=== PATIENT | male | born 1975 | race Caucasian/White ===

== ENCOUNTER 2016-07-26 03:41 | Emergency (ER) | payer SELFPAY ==
[2016-07-26] MEDS ORDERED: Albuterol-Ipratrop 3 mg / 0.5 (3 ml) UD IH STA ×2 (04:10→04:11)
--- NOTE | 2016-07-26 04:13 | ED PDOC ---
HPI: SOB/CHF/COPD Time Seen by Provider: 07/26/16 03:58 Chief Complaint (Nursing): Shortness Of Breath Chief Complaint (Provider): asthma exacerbation History Per: Patient History/Exam Limitations: no limitations Onset/Duration Of Symptoms: Days (2) Current Symptoms Are (Timing): Still Present Initiating Event: Out Of Medications Additional History Per: Patient Additional Complaint(s): 41 y/o male history of asthma presents for eval of asthma exacerbation x 2 days. Patient notes wheezing, and shortness of breath, and has ran out of his inhaler. Denies fever, cough, chest pain, palpitations, recent travel, leg pain /swelling. Past Medical History Reviewed: Historical Data, Nursing Documentation, Vital Signs Vital Signs: Last Vital Signs Temp 98.7 F 07/26/16 03:58 Pulse 78 07/26/16 03:58 Resp 17 07/26/16 04:36 BP 136/89 07/26/16 03:58 Pulse Ox 100 07/26/16 05:14 - Medical History PMH: Asthma - Family History Family History: States: Unknown Family Hx - Home Medications Home Medications: Ambulatory Orders Medication Instructions Recorded Albuterol [Proventil] 0.09 2 IH Q6 PRN #1 inhaler 03/29/15 Azithromycin [Zithromax Z-Beto] 250 mg PO DAILY #1 tab 03/29/15 Methylprednisolone [Medrol Dosepak] 4 mg PO ASDIR #1 pkg 03/29/15 Albuterol HFA [Ventolin HFA 90 1 - 2 puff IH Q4 PRN #1 inh 07/26/16 mcg/actuation (8 g)] predniSONE [Prednisone] 60 mg PO DAILY #12 tab 07/26/16 - Allergies Allergies/Adverse Reactions: Allergies Allergy/AdvReac Type Severity Reaction Status Date / Time shellfish derived Allergy Mild rash and Verified 07/26/16 03:58 swelling Review of Systems ROS Statement: Except As Marked, All Systems Reviewed And Found Negative Respiratory: Positive for: Shortness of Breath, Wheezing Physical Exam - Reviewed Nursing Documentation Reviewed: Yes Vital Signs Reviewed: Yes - Physical Exam Appears: Positive for: Well, Non-toxic, No Acute Distress Head Exam: Positive for: ATRAUMATIC, NORMAL INSPECTION, NORMOCEPHALIC Skin: Positive for: Normal Color Eye Exam: Positive for: Normal appearance ENT: Positive for: Normal ENT Inspection Cardiovascular/Chest: Positive for: Regular Rate, Rhythm Respiratory: Positive for: Wheezing Gastrointestinal/Abdominal: Positive for: Normal Exam Back: Positive for: Normal Inspection Extremity: Positive for: Normal ROM Neurologic/Psych: Positive for: Alert, Oriented - ECG O2 Sat by Pulse Oximetry: 100 - Progress ED Course And Treament: duonebs, prednisone PO On re-eval, patient states he is feeling better. wheezing resolved. Rx Prednisone, albuterol provided. Follow up PMD 2-3 days. Return to ED for worsening/concerning symptoms. Disposition - Clinical Impression Clinical Impression: Asthma exacerbation - Patient ED Disposition Is Patient to be Admitted: No Counseled Patient/Family Regarding: Studies Performed, Diagnosis, Need For Followup - Disposition Referrals: [facility] [Outside] Disposition: Routine/Home Disposition Time: 05:56 Condition: IMPROVED Prescriptions: Albuterol HFA [Ventolin HFA 90 mcg/actuation (8 g)] 1 - 2 puff IH Q4 PRN #1 inh PRN Reason: Wheezing predniSONE [Prednisone] 60 mg PO DAILY #12 tab Instructions: Asthma (ED)
[2016-07-26 04:20] VITALS: BP 136/89; PULSE 78; RESP 17; TEMP 98.7; O2SAT 100
== END 2016-07-26 06:30 | disposition home or self-care (01) ==
LOC: H.ER 03:41
DX: J45.901 Unspecified asthma with (acute) exacerbation (principal)

== ENCOUNTER 2016-08-09 03:11 | Emergency (ER) | payer SELFPAY ==
[2016-08-09 03:27] VITALS: BP 138/80; PULSE 83; RESP 20; TEMP 98.4; O2SAT 98
[2016-08-09] MEDS ORDERED: Albuterol-Ipratrop 3 mg / 0.5 (3 ml) UD IH STA ×2 (03:59)
[2016-08-09] MEDS ORDERED: Albuterol-Ipratrop 3 mg / 0.5 (3 ml) UD ONE (03:59)
--- NOTE | 2016-08-09 05:13 | ED PDOC ---
HPI: SOB/CHF/COPD Time Seen by Provider: 08/09/16 03:33 Chief Complaint (Nursing): Shortness Of Breath Chief Complaint (Provider): asthma History Per: Patient History/Exam Limitations: no limitations Onset/Duration Of Symptoms: Days Current Symptoms Are (Timing): Still Present Initiating Event: Out Of Medications Additional History Per: Patient Additional Complaint(s): 41 y/o male history of asthma presents for eval of wheezing x 3 days. Patient states he ran out of his albuterol inhaler. Denies fever, cough, chest pain, shortness of breath, palpitations, leg pain/swelling. Patient admits to tobacco and heroin use. Past Medical History Reviewed: Historical Data, Nursing Documentation, Vital Signs Vital Signs: Last Vital Signs Temp 98.4 F 08/09/16 03:22 Pulse 83 08/09/16 03:22 Resp 20 08/09/16 03:22 BP 138/80 08/09/16 03:22 Pulse Ox 98 08/09/16 05:13 - Medical History PMH: Asthma Denies: Chronic Kidney Disease - Family History Family History: States: Unknown Family Hx - Home Medications Home Medications: Ambulatory Orders Medication Instructions Recorded Albuterol [Proventil] 0.09 2 IH Q6 PRN #1 inhaler 03/29/15 Azithromycin [Zithromax Z-Beto] 250 mg PO DAILY #1 tab 03/29/15 Methylprednisolone [Medrol Dosepak] 4 mg PO ASDIR #1 pkg 03/29/15 Albuterol HFA [Ventolin HFA 90 1 - 2 puff IH Q4 PRN #1 inh 07/26/16 mcg/actuation (8 g)] predniSONE [Prednisone] 60 mg PO DAILY #12 tab 07/26/16 Albuterol HFA [Ventolin HFA 90 1 - 2 puff IH Q4 PRN #1 inh 08/09/16 mcg/actuation (8 g)] - Allergies Allergies/Adverse Reactions: Allergies Allergy/AdvReac Type Severity Reaction Status Date / Time shellfish derived Allergy Mild rash and Verified 07/26/16 03:58 swelling Review of Systems ROS Statement: Except As Marked, All Systems Reviewed And Found Negative Respiratory: Positive for: Wheezing Physical Exam - Reviewed Nursing Documentation Reviewed: Yes Vital Signs Reviewed: Yes - Physical Exam Appears: Positive for: Well, Non-toxic, No Acute Distress Head Exam: Positive for: ATRAUMATIC, NORMAL INSPECTION, NORMOCEPHALIC Skin: Positive for: Normal Color Eye Exam: Positive for: Normal appearance ENT: Positive for: Normal ENT Inspection Cardiovascular/Chest: Positive for: Regular Rate, Rhythm Respiratory: Positive for: Wheezing (expiratory). Negative for: Accessory Muscle Use, Respiratory Distress Gastrointestinal/Abdominal: Positive for: Normal Exam Extremity: Positive for: Normal ROM Neurologic/Psych: Positive for: Alert, Oriented - ECG O2 Sat by Pulse Oximetry: 98 - Progress ED Course And Treament: duonebs On re-eval, wheezing improved. Patient discharged with rx Albuterol HFA. Advised follow up PMD 2-3 days. REturn to ED for worsening/concerning symptoms. Disposition - Clinical Impression Clinical Impression: Asthma exacerbation - Patient ED Disposition Is Patient to be Admitted: No Counseled Patient/Family Regarding: Diagnosis, Need For Followup, Rx Given - Disposition Disposition: Routine/Home Disposition Time: 05:59 Condition: IMPROVED Prescriptions: Albuterol HFA [Ventolin HFA 90 mcg/actuation (8 g)] 1 - 2 puff IH Q4 PRN #1 inh PRN Reason: Wheezing Instructions: Asthma (ED)
== END 2016-08-09 06:09 | disposition home or self-care (01) ==
LOC: H.ER 03:11
DX: J45.909 Unspecified asthma, uncomplicated (principal)

== ENCOUNTER 2016-08-18 23:24 | Emergency (ER) | payer SELFPAY ==
[2016-08-18 23:42] VITALS: PULSE 55; RESP 16; TEMP 98.2; O2SAT 95
[2016-08-18] MEDS ORDERED: Albuterol-Ipratrop 3 mg / 0.5 (3 ml) UD INH STA (23:55)
[2016-08-19] MEDS ORDERED: Albuterol-Ipratrop 3 mg / 0.5 (3 ml) UD ONE (00:11)
--- NOTE | 2016-08-19 00:37 | ED PDOC ---
HPI: SOB/CHF/COPD Time Seen by Provider: 08/18/16 23:39 Chief Complaint (Nursing): Shortness Of Breath Chief Complaint (Provider): SOB History Per: Patient History/Exam Limitations: no limitations Onset/Duration Of Symptoms: Days Current Symptoms Are (Timing): Still Present Additional History Per: Patient Additional Complaint(s): 41 y/o male history of asthma presents for evaluation of shortness of breath for the past day. Patient states he ran out of his albuterol inhaler. Denies fever, cough, chest pain, shortness of breath, palpitations, leg pain/swelling. Patient admits to heroin use today. Pt offers no additional medical complaints. Past Medical History Reviewed: Historical Data, Nursing Documentation, Vital Signs Vital Signs: Last Vital Signs Temp 98.2 F 08/18/16 23:37 Pulse 55 L 08/18/16 23:37 Resp 16 08/19/16 00:32 BP Pulse Ox 95 08/19/16 00:39 - Medical History PMH: Asthma Denies: Chronic Kidney Disease - Family History Family History: States: Unknown Family Hx - Social History Drugs: Opiates - Home Medications Home Medications: Ambulatory Orders Medication Instructions Recorded Albuterol [Proventil] 0.09 2 IH Q6 PRN #1 inhaler 03/29/15 Azithromycin [Zithromax Z-Beto] 250 mg PO DAILY #1 tab 03/29/15 Methylprednisolone [Medrol Dosepak] 4 mg PO ASDIR #1 pkg 03/29/15 Albuterol HFA [Ventolin HFA 90 1 - 2 puff IH Q4 PRN #1 inh 07/26/16 mcg/actuation (8 g)] predniSONE [Prednisone] 60 mg PO DAILY #12 tab 07/26/16 Albuterol HFA [Ventolin HFA 90 1 - 2 puff IH Q4 PRN #1 inh 08/09/16 mcg/actuation (8 g)] Albuterol HFA [Ventolin HFA 90 1 - 2 puff IH Q6 PRN #1 inhaler 08/19/16 mcg/actuation (8 g)] predniSONE [predniSONE Tab] 60 mg PO QAM #12 tab 08/19/16 - Allergies Allergies/Adverse Reactions: Allergies Allergy/AdvReac Type Severity Reaction Status Date / Time shellfish derived Allergy Mild rash and Verified 07/26/16 03:58 swelling Review of Systems ROS Statement: Except As Marked, All Systems Reviewed And Found Negative Respiratory: Positive for: Shortness of Breath Physical Exam - Reviewed Nursing Documentation Reviewed: Yes Vital Signs Reviewed: Yes - Physical Exam Appears: Positive for: Well, Non-toxic, No Acute Distress Head Exam: Positive for: ATRAUMATIC, NORMAL INSPECTION, NORMOCEPHALIC Skin: Positive for: Normal Color Eye Exam: Positive for: Normal appearance Neck: Positive for: Normal, Supple Cardiovascular/Chest: Positive for: Regular Rate, Rhythm Respiratory: Positive for: Normal Breath Sounds. Negative for: Respiratory Distress Neurologic/Psych: Positive for: Alert, Oriented - ECG O2 Sat by Pulse Oximetry: 95 (RA) Medical Decision Making Medical Decision Making: Time: 00:00 Impression: SOB in setting of heroin use Plan: -- EKG -- Drug screen -- Duoneb -- Prednisone --Reassess Scribe Attestation: Documented by Day Cano acting as a scribe for Dipak Morgan MD. Provider Attestation: All medical record entries made by the Scribe were at my direction and personally dictated by me. I have reviewed the chart and agree that the record accurately reflects my personal performance of the history, physical exam, medical decision making, and the department course for this patient. I have also personally directed, reviewed, and agree with the discharge instructions and disposition. Disposition - Clinical Impression Clinical Impression: Asthma exacerbation - Disposition Disposition: Routine/Home Disposition Time: 01:30 Condition: STABLE Prescriptions: Albuterol HFA [Ventolin HFA 90 mcg/actuation (8 g)] 1 - 2 puff IH Q6 PRN #1 inhaler PRN Reason: Shortness Of Breath predniSONE [predniSONE Tab] 60 mg PO QAM #12 tab Instructions: Asthma (ED)
--- NOTE | 2016-08-19 20:28 | CARD ---
APPROVED REPORT EKG Measurement Heart [id number] <Conclusion> Sinus bradycardia Otherwise normal ECG
== END 2016-08-19 02:12 | disposition home or self-care (01) ==
LOC: H.ER 23:24
DX: J45.901 Unspecified asthma with (acute) exacerbation (principal)
CPT/HCPCS: 93005; 99282; G0480

== ENCOUNTER 2017-06-08 12:16 | Emergency (ER) | payer MEDICAID ==
[2017-06-08] MEDS ORDERED: Albuterol-Ipratrop 3 mg / 0.5 (3 ml) UD ONE ×2 (12:26→13:59)
[2017-06-08 12:31] VITALS: BMI 30.4
[2017-06-08] MEDS ORDERED: Albuterol-Ipratrop 3 mg / 0.5 (3 ml) UD INH STA ×3 (12:31→14:08)
[2017-06-08 12:35] VITALS: TEMP 98.9
[2017-06-08] MEDS ORDERED: Naloxone 0.4 mg/ml Inj (Adult) IVP ONE (13:20)
--- NOTE | 2017-06-08 13:20 | RAD ---
HISTORY: SOB COMPARISON: Chest radiograph dated 03/29/2015. FINDINGS: LUNGS: No active pulmonary disease. PLEURA: Stable elevation of the right hemidiaphragm. No significant pleural effusion identified, no pneumothorax apparent. CARDIOVASCULAR: Normal. OSSEOUS STRUCTURES: No significant abnormalities. VISUALIZED UPPER ABDOMEN: Normal. OTHER FINDINGS: None. IMPRESSION: No active disease.
[2017-06-08] MEDS ORDERED: Naloxone 0.4 mg/ml Inj (Adult) ONE (13:22)
[2017-06-08 13:28] LABS: BASO % 0.2 % (0.0-2.0); EOS # 0.1 K/uL (0.0-0.7); EOS % 1.1 % (0.0-4.0); HEMOGLOBIN 13.4 g/dL (12.0-18.0); LYMPH # 1.5 K/uL (1.0-4.3); LYMPH % 13.4 % (20.0-40.0); MEAN CELL VOLUME 82.7 fl (80.0-94.0); MEAN CORPUSCULAR HEMOGLOBIN 28.9 pg (27.0-31.0); MEAN CORPUSCULAR HGB CONC 34.9 g/dL (33.0-37.0); MEAN PLATELET VOLUME 8.5 fl (7.2-11.7); MONO # 0.6 K/uL (0.0-0.8); MONO % 5.6 % (0.0-10.0); NEUT # 8.7 K/uL (1.8-7.0); NEUT % 79.7 % (50.0-75.0); NRBC % 0.1 % (0.0-0.0); RBC 4.64 Mil/uL (4.40-5.90); RED CELL DISTRIBUTION WIDTH 12.8 % (11.5-14.5)
--- NOTE | 2017-06-08 13:33 | ED PDOC ---
HPI: Psych/Substance Abuse Time Seen by Provider: 06/08/17 12:18 Chief Complaint (Nursing): Substance Abuse Chief Complaint (Provider): heroin OD ED Caveat: Uncooperative History Per: Patient, EMS History/Exam Limitations: intoxication Current Symptoms Are (Timing): Better Modifying Factor(s): Narcotics Severity: Severe Associated Symptoms: denies: Depression, Paranoia, Suicidal Thoughts Involuntary Hold By: Emergency Physician Additional Complaint(s): 41yo male presents w ALS after reported OD on heroin, patient admits to shooting 2 bags into R arm, then remembers awakening a paramedics. Admits to doing heroin daily for 15+ years. Also notes SOB and cough, wheeze, known asthmatic and heavy smoker/. History limited due to patient uncooperative. Past Medical History Reviewed: Historical Data, Nursing Documentation, Vital Signs Vital Signs: Last Vital Signs Temp 98.9 F 06/08/17 12:31 Pulse 82 06/08/17 12:31 Resp 19 06/08/17 12:31 BP 158/89 H 06/08/17 12:31 Pulse Ox 85 L 06/08/17 12:31 - Medical History PMH: Asthma Denies: Chronic Kidney Disease - Surgical History Surgical History: No Surg Hx - Family History Family History: States: Unknown Family Hx - Living Arrangements Living Arrangements: Other - Social History Current smoker - smoking cessation education provided: Yes Drugs: Opiates - Home Medications Home Medications: Ambulatory Orders Medication Instructions Recorded Albuterol [Proventil] 0.09 2 IH Q6 PRN #1 inhaler 03/29/15 Azithromycin [Zithromax Z-Beto] 250 mg PO DAILY #1 tab 03/29/15 Methylprednisolone [Medrol Dosepak] 4 mg PO ASDIR #1 pkg 03/29/15 Albuterol HFA [Ventolin HFA 90 1 - 2 puff IH Q4 PRN #1 inh 07/26/16 mcg/actuation (8 g)] predniSONE [Prednisone] 60 mg PO DAILY #12 tab 07/26/16 Albuterol HFA [Ventolin HFA 90 1 - 2 puff IH Q4 PRN #1 inh 08/09/16 mcg/actuation (8 g)] Albuterol HFA [Ventolin HFA 90 1 - 2 puff IH Q6 PRN #1 inhaler 08/19/16 mcg/actuation (8 g)] predniSONE [predniSONE Tab] 60 mg PO QAM #12 tab 08/19/16 Albuterol HFA [Ventolin HFA 90 2 puff IH [id number] #1 puff 06/15/17 mcg/actuation (8 g)] predniSONE [predniSONE Tab] 60 mg PO DAILY #9 tab 06/15/17 Albuterol HFA [Ventolin HFA 90 2 puff IH [id number] PRN #1 puff 06/16/17 mcg/actuation (8 g)] Methylprednisolone [Medrol Dose 4 mg PO DAILY #21 mg 06/16/17 Pack (21 tabs)] - Allergies Allergies/Adverse Reactions: Allergies Allergy/AdvReac Type Severity Reaction Status Date / Time shellfish derived Allergy Mild rash and Verified 06/15/17 02:03 swelling Review of Systems Review Of Systems: ROS cannot be obtained secondary to pt's inabilty to answer questions. (unreliable) Physical Exam - Reviewed Nursing Documentation Reviewed: Yes Vital Signs Reviewed: Yes - Physical Exam Appears: Positive for: Non-toxic, Uncomfortable (somnolent but arousable) Head Exam: Positive for: ATRAUMATIC, NORMAL INSPECTION, NORMOCEPHALIC Skin: Positive for: Normal Color, Warm, DRY Eye Exam: Positive for: Normal appearance, EOMI, PERRL (constricted b/l) ENT: Positive for: Normal ENT Inspection Neck: Positive for: Normal, Painless ROM Cardiovascular/Chest: Positive for: Regular Rate, Rhythm. Negative for: Tachycardia Respiratory: Positive for: Rhonchi, Wheezing, Respiratory Distress (mild) Gastrointestinal/Abdominal: Positive for: Bowel Sounds, Soft. Negative for: Tenderness Back: Positive for: Normal Inspection Extremity: Positive for: Normal ROM Neurologic/Psych: Positive for: Alert, Oriented, Other (appears opiate intoxicated). Negative for: Motor/Sensory Deficits - Laboratory Results Result Diagrams: 06/08/17 13:15 06/08/17 13:15 - ECG O2 Sat by Pulse Oximetry: 85 - Critical Care Total Time (In Min): 35 Comments: required immediate bedside attention due to life threatening overdose Medical Decision Making Medical Decision Making: workup for opiate intoxication w evidence asthma exacerbation, initiated w supp O2, CXR and duoneb r/o aspiration, r/o apnea, SPO2 monitored Required additional low dose narcan 0.4mg for somnolence Placed 1:1 Disposition - Clinical Impression Clinical Impression: Heroin abuse - Patient ED Disposition Is Patient to be Admitted: Transfer of Care - Disposition Referrals: [facility] [Outside] Disposition: Transfer of Care Disposition Time: 15:00 Condition: FAIR Instructions: Narcotic Abuse (ED) Forms: [employer] (Turkish) Patient Signed Over To: Jesus Vázquez
[2017-06-08 13:35] LABS: CALCIUM 8.7 mg/dL (8.4-10.2); GFR AFRICAN-AMERICAN > 60; GFR NON-AFRICAN AMERICAN > 60
[2017-06-08 13:45] LABS: ALT/SGPT 67 U/L (21-72)
[2017-06-08 13:46] LABS: ALB/GLOB RATIO 1.2 (1.0-2.1); ALBUMIN 4.3 g/dL (3.5-5.0); AST/SGOT 62 U/L (17-59); BLOOD UREA NITROGEN 20 mg/dl (9-20)
[2017-06-08 14:48] LABS: BARBITURATES, UR NEGATIVE (NEGATIVE); BENZODIAZEPINES, UR NEGATIVE (NEGATIVE); PHENCYCLIDINE, UR NEGATIVE (NEGATIVE)
[2017-06-08 14:58] LABS: OPIATES, UR POSITIVE (NEGATIVE)
--- NOTE | 2017-06-08 16:35 | ED PDOC ---
- Laboratory Results Result Diagrams: 06/08/17 13:15 06/08/17 13:15 - ECG O2 Sat by Pulse Oximetry: 85 - Progress Re-evaluation Time: 16:33 Condition: Improved (Awake alert oriented x 3 No focal m/s deficits. demies SI/ HI O2 sat 95-96% RA) Disposition Counseled Patient/Family Regarding: Diagnosis, Need For Followup - Clinical Impression Clinical Impression: Heroin abuse - POA Present On Arrival: None - Disposition Referrals: [facility] [Outside] Disposition: Routine/Home Disposition Time: 16:34 Condition: FAIR Instructions: Narcotic Abuse (ED) Forms: [employer] (Latvian)
[2017-06-08 16:41] VITALS: BP 135/87; PULSE 97; RESP 18
--- NOTE | 2017-06-09 11:25 | CARD ---
APPROVED REPORT EKG Measurement Heart [id number] NC [id number] <Conclusion> Normal sinus rhythm Normal ECG
[2017-06-24 12:21] VITALS: O2SAT 85
== END 2017-06-08 16:42 | disposition home or self-care (01) ==
LOC: H.ER 12:16
DX: T40.1X1A Poisoning by heroin, accidental (unintentional), initial encounter (principal); F11.10 Opioid abuse, uncomplicated; F17.200 Nicotine dependence, unspecified, uncomplicated; J45.909 Unspecified asthma, uncomplicated
CPT/HCPCS: 71045; 80053; 80320; 80324; 80345; 80346; 80349; 80353; 80358; 80361; 83992; 85025; 93005; 96374; 96375; 99283; J2310; J2930

== ENCOUNTER 2017-06-15 01:40 | Emergency (ER) | payer MEDICAID ==
[2017-06-15 02:03] VITALS: BMI 34.7
[2017-06-15 02:06] VITALS: O2SAT 96
[2017-06-15] MEDS ORDERED: Albuterol-Ipratrop 3 mg / 0.5 (3 ml) UD INH STA ×3 (02:07→03:17)
[2017-06-15 03:56] VITALS: RESP 16
--- NOTE | 2017-06-15 04:57 | ED PDOC ---
HPI: SOB/CHF/COPD Time Seen by Provider: 06/15/17 02:06 Chief Complaint (Nursing): Respiratory Distress Chief Complaint (Provider): Respiratory Distress History Per: Patient History/Exam Limitations: no limitations Additional Complaint(s): 41 y/o male with past medical history of asthma (no intubations) presents to the ED for evaluation of asthma exacerbation triggered by smoking cigarette. Patient reports smoking full pack today. Denies fever, chills, cough, sick contact or any further medical complaints. Past Medical History Reviewed: Historical Data, Nursing Documentation, Vital Signs Vital Signs: Last Vital Signs Temp 97.8 F 06/15/17 04:50 Pulse 82 06/15/17 04:50 Resp 16 06/15/17 04:50 BP 134/78 06/15/17 04:50 Pulse Ox 96 06/15/17 05:03 - Medical History PMH: Asthma Denies: Chronic Kidney Disease - Family History Family History: States: Unknown Family Hx - Social History Current smoker - smoking cessation education provided: Yes (light smoker<10 cigarettes daily) Alcohol: Other (yes) Drugs: Other (Heroin) - Home Medications Home Medications: Ambulatory Orders Medication Instructions Recorded Albuterol [Proventil] 0.09 2 IH Q6 PRN #1 inhaler 03/29/15 Azithromycin [Zithromax Z-Beto] 250 mg PO DAILY #1 tab 03/29/15 Methylprednisolone [Medrol Dosepak] 4 mg PO ASDIR #1 pkg 03/29/15 Albuterol HFA [Ventolin HFA 90 1 - 2 puff IH Q4 PRN #1 inh 07/26/16 mcg/actuation (8 g)] predniSONE [Prednisone] 60 mg PO DAILY #12 tab 07/26/16 Albuterol HFA [Ventolin HFA 90 1 - 2 puff IH Q4 PRN #1 inh 08/09/16 mcg/actuation (8 g)] Albuterol HFA [Ventolin HFA 90 1 - 2 puff IH Q6 PRN #1 inhaler 08/19/16 mcg/actuation (8 g)] predniSONE [predniSONE Tab] 60 mg PO QAM #12 tab 08/19/16 Albuterol HFA [Ventolin HFA 90 2 puff IH [id number] #1 puff 06/15/17 mcg/actuation (8 g)] predniSONE [predniSONE Tab] 60 mg PO DAILY #9 tab 06/15/17 - Allergies Allergies/Adverse Reactions: Allergies Allergy/AdvReac Type Severity Reaction Status Date / Time shellfish derived Allergy Mild rash and Verified 06/15/17 02:03 swelling Review of Systems ROS Statement: Except As Marked, All Systems Reviewed And Found Negative (As per HPI, otherwise negative) Respiratory: Positive for: Other (Asthma exacerbation) Physical Exam - Reviewed Nursing Documentation Reviewed: Yes Vital Signs Reviewed: Yes - Physical Exam Appears: Positive for: Well, Non-toxic, No Acute Distress Head Exam: Positive for: ATRAUMATIC, NORMAL INSPECTION, NORMOCEPHALIC Skin: Positive for: Normal Color, Warm, Dry Eye Exam: Positive for: EOMI, Normal appearance, PERRL ENT: Positive for: Normal ENT Inspection Neck: Positive for: Normal, Painless ROM, Supple Cardiovascular/Chest: Positive for: Regular Rate, Rhythm. Negative for: Murmur Respiratory: Positive for: Wheezing (wheezing bilaterally with prolonged end expiratory phase). Negative for: Accessory Muscle Use Gastrointestinal/Abdominal: Positive for: Normal Exam, Bowel Sounds, Soft. Negative for: Tenderness Back: Positive for: Normal Inspection Extremity: Positive for: Normal ROM. Negative for: Deformity Neurologic/Psych: Positive for: Alert, Oriented (x3) - ECG O2 Sat by Pulse Oximetry: 96 (RA) Pulse Ox Interpretation: Normal Medical Decision Making Medical Decision Making: Time: 02:07 Initial Impression: asthma exacerbation Plan: Albuterol/Ipratropium 3ml INH Albuterol/Ipratropium 3ml INH Albuterol/Ipratropium 3ml INH Prednisone 60mg PO Peak flow pre/post tx Peak flow pre/post tx Peak flow pre/post tx Reevaluation Time: 04:30 --Patient is feeling better --No longer wheezing Scribe Attestation: Documented by Mikel Rodriguez acting as a scribe for Adams Kingsley MD. Scribe Attestation: All medical record entries made by the Scribe were at my direction and personally dictated by me. I have reviewed the chart and agree that the record accurately reflects my personal performance of the history, physical exam, medical decision making, and the department course for this patient. I have also personally directed, reviewed, and agree with the discharge instructions and disposition. Disposition - Clinical Impression Clinical Impression: Asthma - Disposition Referrals: [facility] [Outside] Disposition: Routine/Home Disposition Time: 04:30 Condition: IMPROVED Prescriptions: Albuterol HFA [Ventolin HFA 90 mcg/actuation (8 g)] 2 puff IH [id number] #1 puff predniSONE [predniSONE Tab] 60 mg PO DAILY #9 tab Instructions: Asthma (ED) Forms: [facility] [facility] (Albanian)
[2017-06-15 04:59] VITALS: BP 134/78; PULSE 82; TEMP 97.8
== END 2017-06-15 05:10 | disposition home or self-care (01) ==
LOC: H.ER 01:40
DX: J45.901 Unspecified asthma with (acute) exacerbation (principal); F17.210 Nicotine dependence, cigarettes, uncomplicated

== ENCOUNTER 2017-06-16 16:14 | Emergency (ER) | payer MEDICAID ==
[2017-06-16 16:14] VITALS: BMI 34.7
[2017-06-16 16:52] VITALS: TEMP 98.7
[2017-06-16] MEDS ORDERED: Albuterol-Ipratrop 3 mg / 0.5 (3 ml) UD INH STA (18:55)
--- NOTE | 2017-06-16 18:57 | ED PDOC ---
HPI: CCC, URI, Sore Throat Time Seen by Provider: 06/16/17 17:16 Chief Complaint (Nursing): Cough, Cold, Congestion Chief Complaint (Provider): Cough History Per: Patient Additional Complaint(s): Pt reports he ran out of his rescue inhaler, states his asthma is bothering him. Past Medical History Vital Signs: Last Vital Signs Temp 98.7 F 06/16/17 16:50 Pulse 74 06/16/17 16:50 Resp 16 06/16/17 16:50 BP 141/75 06/16/17 16:50 Pulse Ox 99 06/16/17 16:50 - Medical History PMH: Asthma Denies: Chronic Kidney Disease - Family History Family History: States: Unknown Family Hx - Home Medications Home Medications: Ambulatory Orders Medication Instructions Recorded Albuterol [Proventil] 0.09 2 IH Q6 PRN #1 inhaler 03/29/15 Azithromycin [Zithromax Z-Beto] 250 mg PO DAILY #1 tab 03/29/15 Methylprednisolone [Medrol Dosepak] 4 mg PO ASDIR #1 pkg 03/29/15 Albuterol HFA [Ventolin HFA 90 1 - 2 puff IH Q4 PRN #1 inh 07/26/16 mcg/actuation (8 g)] predniSONE [Prednisone] 60 mg PO DAILY #12 tab 07/26/16 Albuterol HFA [Ventolin HFA 90 1 - 2 puff IH Q4 PRN #1 inh 08/09/16 mcg/actuation (8 g)] Albuterol HFA [Ventolin HFA 90 1 - 2 puff IH Q6 PRN #1 inhaler 08/19/16 mcg/actuation (8 g)] predniSONE [predniSONE Tab] 60 mg PO QAM #12 tab 08/19/16 Albuterol HFA [Ventolin HFA 90 2 puff IH [id number] #1 puff 06/15/17 mcg/actuation (8 g)] predniSONE [predniSONE Tab] 60 mg PO DAILY #9 tab 06/15/17 - Allergies Allergies/Adverse Reactions: Allergies Allergy/AdvReac Type Severity Reaction Status Date / Time shellfish derived Allergy Mild rash and Verified 06/15/17 02:03 swelling - ECG O2 Sat by Pulse Oximetry: 99 Disposition - Disposition
[2017-06-16 19:33] VITALS: BP 134/78; PULSE 82; RESP 18; O2SAT 97
== END 2017-06-16 19:33 | disposition home or self-care (01) ==
LOC: H.ER 16:14
DX: J45.909 Unspecified asthma, uncomplicated (principal)
CPT/HCPCS: 94640; 96372; 99281; J2930